=== PATIENT | male | born 1940 | race Caucasian/White ===

== ENCOUNTER → 2016-12-31 | Outpatient (CLI) | payer BC ==
[~2016-12-31] MED LIST: ACET-1311 PO; ACET500T57 PO; ASPI-461 PO; ASPI325T39 PO; ASPI81TA28 PO; CEPH500C2 PO; CRD200 PO; Captopril PO; GLCSR5 PO; ISOS30TA3 PO; LSX20 PO; MULTTAB58 PO; NTRGSL/4 SL; OXYC-57 PO; OXYC-643 PO; OXYC1TAB3 PO; PRVC/40 PO; RANO500T PO; RIVA1TAB4 PO; SILD50TA PO; TPRSR/25 PO; VGR25 PO
[2016-12-31 09:35] LABS: BASO % 0.6 %; BASO ABS # 0.03 K/uL (0-0.2); COMPLETE YES; HEMATOCRIT 45.3 % (42-52); IG% 0.6 %; LYMPH ABS # 1.03 K/uL (1.2-3.4); MEAN CELL VOLUME 98.1 fL (80-100); MEAN CORPUSCULAR HEMOGLOBIN 35.1 pg (25-34); MEAN CORPUSCULAR HGB CONC 35.8 g/dl (32-36); MEAN PLATELET VOLUME 12.1 fL (7.4-10.4); MONO % 12.4 %; NEUT % 64.4 %; PLATELET COUNT 146 K/uL (130-400); RED BLOOD COUNT 4.62 M/uL (4.7-6.1); WHITE BLOOD COUNT 5.42 K/uL (4.8-10.8)
[2016-12-31 10:02] LABS: ALT/SGPT 23 U/L (12-78); BLOOD UREA NITROGEN 25 mg/dl (7-18); BUN/CREATININE RATIO 25.8 (10-20); CALCIUM 8.9 mg/dl (8.5-10.1); CARBON DIOXIDE 30 mmol/L (21-32); CHLORIDE 104 mmol/L (98-107); CHOLESTEROL 102 mg/dl (0-200); CREATININE 0.95 mg/dl (0.60-1.40); GLUCOSE 109 mg/dl (70-99); POTASSIUM 4.2 mmol/L (3.5-5.1); SODIUM 140 mmol/L (136-145)
[2016-12-31 10:12] LABS: AST/SGOT 15 U/L (15-37); CHOLESTEROL/HDL RATIO 3.8; HDL CHOLESTEROL 27 mg/dl; LDL CHOLESTEROL CALCULATED 41 mg/dl; TRIGLYCERIDES 170 mg/dl (0-150); VERY LOW DENSITY LIPOPROT CALC 34 mg/dl
[2016-12-31 11:09] LABS: ESTIMATED AVERAGE GLUCOSE 117 mg/dl; HA1C FLAG Normal (Normal)
--- NOTE | 2017-01-05 13:56 | CODING QUERY MEDICAL NECESSITY ---
SUPPORTING DIAGNOSIS NEEDED A supporting diagnosis is required for the test/procedure performed on this patient in order for us to be reimbursed by the patient's insurance. Please provide a supporting diagnosis for the following test/procedure listed below next to the test name along with your signature. *If there is no additional diagnosis for this patient that would support the following test/procedure please document that below next to the test/procedure. Test(s)/Procedure(s) that require a supporting diagnosis: * GLYCATED HEMOGLOBIN DIAGNOSIS: * DOS: 12/31/16 Provider Signature: Date: Thank you Teresa García Health Information Management Once completed, please kindly fax back to [phone] For questions please call [phone]
== END | disposition home or self-care (01) ==
LOC: C.LAB1850 08:49
PROVIDERS: ATTEND Internal Medicine
DX: E78.00 Pure hypercholesterolemia, unspecified (principal); E11.9 Type 2 diabetes mellitus without complications

== ENCOUNTER → 2017-01-14 | Day surgery (SDC) | payer BC ==
[~2017-01-14] VITALS: Ht 175.3 cm; Wt 74.5 kg
[~2017-01-14] MED LIST changes: +ACETAMINOPHEN 325 MG TAB PO PRN; +FENTANYL CITRATE INJ 50 MCG/1 ML 2 ML VIAL ONE; +HEPARIN SOD (PORCINE) 1000 UNIT/ML 10 ML VIAL ONE; +MIDAZOLAM HCL 1 MG/ML 2ML VIAL ONE; +NITROGLYCERIN/D5W 100MCG/ML 20ML SYR ONE; +NiCARDipine HCL INJ 2.5 MG/ML 10 ML AMP ONE; +ONDANSETRON INJ 2 MG/ML 2 ML VIAL ONE; +SODIUM CHLORIDE 0.9% 1000ML 1,000 ML IV SCH
[2017-01-14 07:30] VITALS: Ht 175.3 cm; Wt 74.5 kg
[2017-01-14 07:31] VITALS: BP 173/79; PULSE 54; TEMP 36.4; O2SAT 98
--- NOTE | 2017-01-14 09:52 | History & Physical Bridge Note ---
H&P Re-Evaluation Bridge Note: I have examined the patient, reviewed the History & Physical and in the interval since the performance of the History & Physical I have noted the following changes of clinical significance: No changes noted
--- NOTE | 2017-01-14 09:53 | Procedure Note ---
Pre-Mod Sedation Assessment General Date of Moderate Sedation: Jan 14, 2017. Vital Signs: Vital Signs Past 12 Hours Date Time Temp Pulse Resp B/P Pulse Ox O2 Delivery O2 Flow Rate FiO2 01/14/17 09:13 54 20 149/75 100 Nasal Cannula 4 01/14/17 07:31 36.4 54 16 173/79 98 Room Air Review Cardiovascular: regular rate, rhythm, no edema Abdomen: normal bowel sounds, non tender Lungs: chest non-tender, lungs clear, normal breath sounds Pre-Sedation Airway Assessment Oral Cavity: Capped Teeth, Dental Abnormalities Able to Visualize Vocal Cords: Yes Short Thick Neck: No Hx of Sleep Apnea: Yes Smoking Status: Never Smoker Mallampati Classification: Class II ASA Classification: Class II Procedure Planning Contraindications-for Mod Sed: None Yes Notes The planned sedation has been discussed with the patient and consent obtained. I have identified the patient, determined the appropriateness of sedation and have assessed the patient immediately prior to the procedure. All medicine(s) and interventions are by my order.
--- NOTE | 2017-01-14 09:54 | Procedure Note ---
Post-Mod Sedation Assessment General Date of Moderate Sedation Jan 14, 2017. Vital Signs: Vital Signs Past 12 Hours Date Time Temp Pulse Resp B/P Pulse Ox O2 Delivery O2 Flow Rate FiO2 01/14/17 09:13 54 20 149/75 100 Nasal Cannula 4 01/14/17 07:31 36.4 54 16 173/79 98 Room Air Review - Discharge Criteria Vital Signs Stable: Yes Alert/Oriented/Conversant: Yes Returned to Baseline Mental St: Yes Nausea Absent/Minimal: Yes Pain/Discomfort/Absent/Minimal: Yes Normal/Baseline Respirations: Yes Active Bleeding?: No Pt Received D/C Instructions: Yes Prescriptions Given: Transmitted Specific Proced. D/C Criteria Distal Pulses Present (Cardiac: Yes Groin site assessed-Card Cath: N/A Voided Prior To Discharge: N/A Discharged Patients Adult Escort/Transportation: Yes
--- NOTE | 2017-01-14 10:17 | Cardiac Catheterization ---
Procedure Note Procedure Date Jan 14, 2017. Pre-Procedure Diagnosis Angina AUC Score 8 Post-Procedure Diagnosis Severe CAD Procedure(s) Performed Coronary Angiography, IVUS Skein Drier Dr. Westfall Corn Shredder(s) [place] Estimated Blood Loss 15 Medication(s) Fentanyl, Heparin, Nitroglycerin, Versed, Lidocaine 1% Summary of Findings Indication: Accelerating Angina despite maximal medical therapy Access: 6Fr Right Radial Artery Catheters: Norman, JL3.5, EBU 3.5 guide Findings: LM - Calcified, 40-50% mid segment stenosis LAD - Heavily calcified, 99% proximal stenosis at take-off of diffusely disease small 1st diagonal, moderate 40-50% diffuse disease in mid segment, 50% focal stenosis in mid segment after take-off of D2. Circumflex - Calcified, 60% ostial stenosis, 50% mid stenosis RCA - Dominant, mild proximal-mid disease, 40-50% distal RCA disease prior to take-off of PDA. R-PDA small caliber vessel with 99% ostial stenosis. Small PLB1 and PLB2 with severe diffuse disease. IVUS used to assess left main. BMW wire placed into circumflex. Mid circumflex heavily calcified with at least 50% stenosis (CSA 4.5 cm2), 60% ostial calcified stenosis. Mid left main ~50% stenosis, CSA 6.3 cm2. Arterial Closure: TR Band Summary: 1. Severe multivessel coronary artery disease -- Heavily calcified 99% proximal LAD disease -- 40-50% LM disease (CSA 6.3 cm2 by IVUS) -- 60% ostial circumflex -- Severe 99% ostial stenosis in small R-PDA Recommendations: Refer to [facility] Surgery at [facility] for bypass surgery Continue current cardiac regimen and antianginals. 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 ACC Data Cardiac Status Clinical evaluation leading to the procedure CAD Presntation: Stable angina Anginal Classification: CCS III Heart Failure: No, NYHA Class: CCS I Cardiogenic Shock w/in 24Hrs: No Cardiac Arrest w/in 24Hrs: No Imaging studies past 6 months: No Stress studies past 6 months: No Standard Exercise Stress Test: No Stress Echocardiogram: No Stress Testing w/SPECT MPI: No Cardiac CTA: No Coronary Anatomy Dominant: Right Left Main (% Stenosis): Mid (40-50) LAD (% Stenosis): Proximal (99) Circumflex (% Stenosis): Ostial (60), Mid (50) RCA (% Stenosis): Distal (40-50) R PDA (% Stenosis): Ostial (99) R PL1 (% Stenosis): Ostial (95), Proximal R PL2 (% Stenosis): Proximal (95) Diagnostic Physician's Name: Marco Westfall MD Closure Device Percutaneous Entry Location: Radial Closure Device: Radial Band Recommendations: CABG Intraprocedure Events Significant Dissection: No Perforation: No
--- NOTE | 2017-01-14 10:22 | Discharge Instructions ---
Discharge Instructions Procedure Procedure Date: Jan 14, 2017. Reason for Visit: Angina Pectoris. Discharge Discharge Date: Jan 14, 2017. Last Recorded Wt (Kilograms): 74.5 Anesthesia Post Anesthesia Instructions: If you have had IV Sedation: * Do not drive today. * Resume driving when surgeon permits. * Do not make important decisions or sign legal documents today. * Call surgeon for: 1. Temperature elevations greater than 101 degrees F. 2. Uncontrollable pain. 3. Excessive bleeding. 4. Persistent nausea and vomiting. 5. Medication intolerance (nausea, vomiting or rash). * For nausea and vomiting use only clear liquids such as: tea, soda, bouillon until nausea subsides, then gradually increase diet as tolerated. * If you have any concerns or questions, call your surgeon's office. If physician is unavailable and it is an emergency, call 911 or go to the nearest emergency room. Instructions Activity Recommendations: limitations as noted below Allergies: Coded Allergies: Penicillins (Unverified Allergy, Mild, rash, 02/18/15) Provider Instructions ACTIVITY RECOMMENDATIONS: It is common to feel weak and fatigue for a few days. * Do not drive or operate any motorized equipment for the next three days. * Limit stair usage (2 or 3 trips a day only) for the next three days. * Do not lift anything heavier than 10 pounds for the next three days. * Do not engage in vigorous exercise or any sports for the next five days. * You may shower the day after your procedure, but do not immerse the area for three days. Cleanse the site gently with soap and water. SPECIAL CARE INSTRUCTIONS: * You may replace the pressure dressing or band-aid the morning after the procedure. * After your procedure, it is normal to have a small bruise or small lump at the site. Examine your site daily for any change in the bruise or lump, redness, swelling, drainage or numbness. Notify your doctor if any change. BLEEDING: * If there is a small amount of bleeding at the site, lie down and apply firm pressure with a clean cloth for ten minutes. When the bleeding stops, lie quietly keeping the procedure limb straight for six hours. Notify your doctor as soon as possible. * If the bleeding does not stop after ten minutes or if there is a large amount of bleeding or spurting, call 911 immediately. Continue to lie down and hold firm pressure until help arrives. SKIN IRRITATION: * You may experience some redness and/or swelling in the area where radiation was administered. If any skin irritation occurs, please contact your family physician. FOLLOW UP VISIT: Keep any scheduled doctor appointments. Follow Up Follow-up with: Cardiac surgery at [facility] Recommendations: Call your doctor if: * Temperature above 101 degrees * Pain not relieved by pain medicine ordered * There is increased drainage or redness from any incision * You have any unanswered questions or concerns. Your Doctors Instructions noted above were prepared by provider Alvaro Westfall. Patient Signature Section: Patient Instructions Signature Page Kye Rivera Patient (or Guardian) Signature/Date: I have read and understand the instructions given to me by my caregivers. Caregiver/RN/Doctor Signature/Date: The above-named patient and/or guardian has received patient instructions on this date. + Original Patient Signature Page (only) stays with chart. Please make copy for patient.
[2017-01-14 15:00] VITALS: BP 160/68; PULSE 62; O2SAT 96
--- NOTE | 2017-01-14 17:00 | ECHOCARDIOGRAM REPORT ---
*NOTICE TO RECEIVING CONSTITUTION PARTY AGENCY This information is strictly Confidential and protected under [place] law. [place] law prohibits you from making any further disclosure of this information unless further disclosure is expressly permitted by the written consent of the person to whom it pertains or is authorized by law. A general authorization for the release of medical or other information is not sufficient for this purpose. Hospital accepts no responsibility if the information is made available to any other person, INCLUDING THE PATIENT. Interpretation Summary * Name: SUNNY SARMIENTO Study Date: 01/14/2017 12:00 PM BP: 158/70 mmHg * Patient Location: C.CATH HR: 55 * : 1940 (M/d/yyyy) Gender: Male Height: 69 in * Age: 76 yrs Ethnicity: CA Weight: 164 lb * Ordering Physician: Marco Westfall * Referring Physician: Marco Westfall * Performed By: Elise Whittaker RDCS * * Reason For Study: Ischemic cardiomyopathy * BSA: 1.9 m2 * -- Conclusions -- * 1. Normal LV size and wall thickness. * 2. Normal LV systolic function. LVEF 60-65%. No regional wall motion abnormalities. * 3. Grade I diastolic dysfunction. * 4. Normal RV size and function. * 5. Mild mitral regurgitation. * 6. Trace aortic regurgitation. * 7. Normal estimated PA and RA pressures. * 8. No prior studies for comparison. Procedure Details * A complete two-dimensional transthoracic echocardiogram was performed (2D, M-mode, Doppler and color flow Doppler). Left Ventricle * The left ventricle is grossly normal size. * There is normal left ventricular wall thickness. * Ejection Fraction = 60-65%. * No regional wall motion abnormalities noted. Right Ventricle * The right ventricle is grossly normal size. * The right ventricular systolic function is normal as assessed by tricuspid annular plane systolic excursion (TAPSE) (normal >1.5 cm). Atria * Borderline left atrial enlargement. * Right atrial size is normal. * No ASD detected; PFO is not assessed. Mitral Valve * The mitral valve is grossly normal. * There is no mitral valve stenosis. * There is mild mitral regurgitation. Tricuspid Valve * The tricuspid valve anatomy is normal. * There is no tricuspid stenosis. * There is mild tricuspid regurgitation. Aortic Valve * The aortic valve is normal in structure and function. * The aortic valve is trileaflet. * No hemodynamically significant valvular aortic stenosis. * Trace aortic regurgitation. Pulmonic Valve * The pulmonary valve is inadequately visualized, but the Doppler data is adequate for interpretation. * There is no pulmonic valvular stenosis. * Trace pulmonic valvular regurgitation. Great Vessels * The aortic root and proximal ascending aorta are normal sized. * No Doppler or imaging evidence of an aortic coarctation. * There is no evidence of pulmonary hypertension. The PA systolic pressure is less than 36 mmHg. * Normal inferior vena cava size and collapsability with sniff indicates a normal right atrial pressure of 3 mmHg Left Ventricular Diastolic Function * Grade I diastolic dysfunction, (abnormal relaxation pattern). MMode 2D Measurements and Calculations IVSd 0.88 cm LVIDd 4.0 cm LVIDs 2.7 cm LVPWd 0.92 cm IVS/LVPW 0.95 FS 33.6 % EDV(Teich) 70.6 ml ESV(Teich) 26.2 ml EF(Teich) 62.9 % EDV(cubed) 64.7 ml ESV(cubed) 19.0 ml EF(cubed) 70.7 % LV mass(C)d 110.2 grams LV mass(C)dI 58.0 grams/m\S\2 CO(Teich) 2.3 l/min CI(Teich) 1.2 l/min/m\S\2 SV(Teich) 44.4 ml SI(Teich) 23.4 ml/m\S\2 CO(cubed) 2.4 l/min CI(cubed) 1.3 l/min/m\S\2 SV(cubed) 45.7 ml SI(cubed) 24.1 ml/m\S\2 Ao root diam 2.6 cm Ao root area 5.4 cm\S\2 ACS 1.9 cm LA dimension 3.1 cm asc Aorta Diam 3.2 cm LA/Ao 1.2 LVOT diam 2.0 cm LVOT area 3.1 cm\S\2 LVAd ap4 26.1 cm\S\2 LVLd ap4 8.3 cm EDV(MOD-sp4) 67.0 ml LVAs ap4 13.4 cm\S\2 LVLs ap4 6.2 cm ESV(MOD-sp4) 24.0 ml EF(MOD-sp4) 64.2 % LVAd ap2 23.2 cm\S\2 LVLd ap2 8.0 cm EDV(MOD-sp2) 55.0 ml LVAs ap2 11.7 cm\S\2 LVLs ap2 6.5 cm ESV(MOD-sp2) 19.0 ml EF(MOD-sp2) 65.5 % CO(MOD-sp4) 2.2 l/min CI(MOD-sp4) 1.2 l/min/m\S\2 SV(MOD-sp4) 43.0 ml SI(MOD-sp4) 22.6 ml/m\S\2 CO(MOD-sp2) 1.9 l/min CI(MOD-sp2) 0.99 l/min/m\S\2 SV(MOD-sp2) 36.0 ml SI(MOD-sp2) 19.0 ml/m\S\2 Doppler Measurements and Calculations MV E max tommy 75.5 cm/sec MV A max tommy 84.4 cm/sec MV E/A 0.89 MV dec time 0.20 sec Ao V2 max 90.9 cm/sec Ao max PG 3.3 mmHg Ao max PG (full) 0.69 mmHg SETH(V,A) 2.7 cm\S\2 SETH(V,D) 2.7 cm\S\2 AI max tommy 177.1 cm/sec AI max PG 12.6 mmHg AI dec slope 124.8 cm/sec\S\2 AI P1/2t 415.9 msec LV V1 max PG 2.6 mmHg LV V1 max 80.9 cm/sec MR max tommy 581.1 cm/sec MR max PG 135.1 mmHg MR mean tommy 459.6 cm/sec MR mean PG 93.5 mmHg MR VTI 229.8 cm PA V2 max 79.1 cm/sec PA max PG 2.5 mmHg PA acc slope 252.3 cm/sec\S\2 PA acc time 0.16 sec TR max tommy 241.8 cm/sec PA pr(Accel) 7.7 mmHg
== END | disposition home or self-care (01) ==
LOC: C.CATH 06:54
PROVIDERS: ATTEND Internal Medicine Interventional Cardiology
DX: I25.119 Atherosclerotic heart disease of native coronary artery with unspecified angina pectoris (principal); I25.84 Coronary atherosclerosis due to calcified coronary lesion; I47.1 Supraventricular tachycardia; I44.2 Atrioventricular block, complete; I10 Essential (primary) hypertension; E78.00 Pure hypercholesterolemia, unspecified; E11.9 Type 2 diabetes mellitus without complications

== ENCOUNTER 2017-02-20 11:12 | Emergency (ER) | payer BC ==
[~2017-02-20 11:12] MED LIST changes: -ACET-1311 PO; -ACET500T57 PO; -ACETAMINOPHEN 325 MG TAB PO PRN; -ASPI-461 PO; -ASPI81TA28 PO; -CEPH500C2 PO; -FENTANYL CITRATE INJ 50 MCG/1 ML 2 ML VIAL ONE; -HEPARIN SOD (PORCINE) 1000 UNIT/ML 10 ML VIAL ONE; -MIDAZOLAM HCL 1 MG/ML 2ML VIAL ONE; -NITROGLYCERIN/D5W 100MCG/ML 20ML SYR ONE; -NTRGSL/4 SL; -NiCARDipine HCL INJ 2.5 MG/ML 10 ML AMP ONE; -ONDANSETRON INJ 2 MG/ML 2 ML VIAL ONE; -OXYC-57 PO; -OXYC-643 PO; -OXYC1TAB3 PO; -RIVA1TAB4 PO; -SILD50TA PO; -SODIUM CHLORIDE 0.9% 1000ML 1,000 ML IV SCH
[2017-02-20 11:14] VITALS: TEMP 36.8; Ht 176.5 cm
--- NOTE | 2017-02-20 11:48 | EMERGENCY ROOM VISIT NOTE ---
History Report prepared by Gen: Bobby Majano Under the Supervision of: Dr. Tone Carney D.O. First contact with patient: 11:26 Chief Complaint: LEG PAIN,LEG INJURY Stated Complaint: LEG PAIN/REFERRED BY TIMOTHY OLIVO) History of Present Illness The patient is a 76 year old male who presents to the Emergency Room with complaints of worsening left leg pain beginning two days prior to arrival. He currently rates his discomfort as a 10/10 in severity. The patient states his pain worsens with walking and standing. He notes he had cardiac bypass surgery performed eight days ago at [facility]. The patient states he had two grafts harvested from his left leg. He notes he is current on Xarelto 20 mg daily for DVT prophylaxis. The patient states he has a pacemaker that was placed years ago. He denies a fever. Source of History: patient Onset: two days [employer] Position: leg (left) Symptom Intensity: 10/10 Timing: worsening Modifying Factors (Worsening): other (Walking. Standing.) Associated Symptoms: No fevers Review of Systems See above for pertinent positives & negatives. A total of 10 systems reviewed and were otherwise negative. Past Medical & Surgical Medical Problems: (1) Hypercholesterolemia (2) Hypertension (3) Type 2 diabetes mellitus Surgical Problems: (1) Hx of heart bypass surgery Family History Diabetes mellitus Heart disease Social History Smoking Status: Never Smoker Marital Status: Housing Status: lives with significant other Occupation Status: retired Current/Historical Medications Scheduled Amiodarone HCl (Amiodarone HCl), 200 MG PO UD Aspirin (Aspirin), 81 MG PO BID Cephalexin Monohydrate (Keflex), 500 MG PO QID Furosemide (Furosemide), 20 MG PO QAM Glipizide (Glipizide Xl), 5 MG PO BID Metoprolol Succinate (Metoprolol Succinate ER), 12.5 MG PO BID Pravastatin Sod (Pravastatin Sodium), 40 MG PO HS Rivaroxaban (Xarelto), 20 MG PO QAM Scheduled PRN Acetaminophen (Tylenol), 650 MG PO Q6 PRN for Pain Acetaminophen (Acetaminophen), 2 TAB PO Q8H PRN for Pain Oxycodone Immediate Rel Tab (Roxicodone Ir), 1-2 TAB PO Q4H PRN for Severe Pain Oxycodone/Acetaminophen 5MG/325MG (Oxycodone/Acetaminophen 5MG/325MG), 1 TABLET PO Q4H PRN for Pain Allergies Coded Allergies: Penicillins (Unverified Allergy, Mild, rash, 02/20/17) Physical Exam Vital Signs Date Time Temp Pulse Resp B/P Pulse Ox O2 Delivery O2 Flow Rate FiO2 02/20/17 13:19 83 02/20/17 13:13 82 16 142/75 97 02/20/17 13:12 97 Room Air 02/20/17 11:14 36.8 84 17 137/66 98 Room Air Physical Exam GENERAL: Patient is well appearing and in no acute distress. HEENT: No acute trauma, normocephalic atraumatic, mucous membranes moist, no nasal congestion, no scleral icterus. NECK: No stridor, no adenopathy, no meningismus, trachea is midline. LUNGS: No dyspnea. Clear to auscultation and equal bilaterally. No wheeze, no rhonchi. HEART: Regular rate and rhythm. No murmurs, rubs, gallops appreciated. ABDOMEN: Soft, nontender, bowel sounds positive, no masses appreciated, no peritonitis. BACK: No midline tenderness, no CVA tenderness EXTREMITIES: 3+ pitting edema. Cellulitis changes over the medial aspect of the left ankle. Two harvest site surgical wounds that are clean, dry, and intact. Extensive ecchymosis of the medical thigh. Normal motion all extremities. NEUROLOGIC: Alert and oriented, no acute motor or sensory deficits, no focal weakness, cranial nerves grossly intact. SKIN: No rash, no jaundice, no diaphoresis. Medical Decision & Procedures ER Provider Diagnostic Interpretation: Radiology results as stated below per my review and radiologist interpretation: ULTRASOUND LEFT VENOUS DOPP LOWER EXT UNILAT CLINICAL HISTORY: Left leg swelling COMPARISON STUDY: No previous studies for comparison. FINDINGS: Real-time and color flow Doppler imaging were performed. Flow was seen within the femoral, popliteal and calf veins with no intraluminal thrombus demonstrated. There is a left greater saphenous vein thrombus. This extends from the proximal to distal thigh. The thrombus extends proximally to within 12 mm of the common femoral vein confluence. IMPRESSION: 1. Left greater saphenous vein thrombus. 2. No evidence of thrombus within the deep system proper Electronically signed by: Froilan Rubin M.D. 02/20/2017 1:12 PM LEFT TIBIA/FIBULA 2 VIEWS ROUTINE CLINICAL HISTORY: Left leg swelling and redness. COMPARISON: None. DISCUSSION: No fractures are visualized. Vascular clips are visualized within the medial soft tissues proximally. At the knee, there is chondrocalcinosis. No destructive lesions are evident. There are vascular calcifications present. No destructive lesions are visualized. IMPRESSION: 1. Chondrocalcinosis 2. Vascular calcifications 3. No evidence of fracture Electronically signed by: Froilan Rubin M.D. 02/20/2017 2:37 PM Laboratory Results 02/20/17 11:46 Red Blood Count 3.19, Mean Corpuscular Volume 98.4, Mean Corpuscular Hemoglobin 32.6, Mean Corpuscular Hemoglobin Concent 33.1, Mean Platelet Volume 10.4, Neutrophils (%) (Auto) 75.8, Lymphocytes (%) (Auto) 13.8, Monocytes (%) (Auto) 6.2, Eosinophils (%) (Auto) 2.6, Basophils (%) (Auto) 0.3, Neutrophils # (Auto) 5.90, Lymphocytes # (Auto) 1.07, Monocytes # (Auto) 0.48, Eosinophils # (Auto) 0.20, Basophils # (Auto) 0.02 02/20/17 11:46 Test 02/20/17 11:46 White Blood Count 7.77 K/uL (4.8-10.8) Red Blood Count 3.19 M/uL (4.7-6.1) Hemoglobin 10.4 g/dL (14.0-18.0) Hematocrit 31.4 % (42-52) Mean Corpuscular Volume 98.4 fL (80-100) Mean Corpuscular Hemoglobin 32.6 pg (25-34) Mean Corpuscular Hemoglobin Concent 33.1 g/dl (32-36) Platelet Count 261 K/uL (130-400) Mean Platelet Volume 10.4 fL (7.4-10.4) Neutrophils (%) (Auto) 75.8 % Lymphocytes (%) (Auto) 13.8 % Monocytes (%) (Auto) 6.2 % Eosinophils (%) (Auto) 2.6 % Basophils (%) (Auto) 0.3 % Neutrophils # (Auto) 5.90 K/uL (1.4-6.5) Lymphocytes # (Auto) 1.07 K/uL (1.2-3.4) Monocytes # (Auto) 0.48 K/uL (0.11-0.59) Eosinophils # (Auto) 0.20 K/uL (0-0.5) Basophils # (Auto) 0.02 K/uL (0-0.2) RDW Standard Deviation 55.5 fL (36.4-46.3) RDW Coefficient of Variation 16.1 % (11.5-14.5) Immature Granulocyte % (Auto) 1.3 % Immature Granulocyte # (Auto) 0.10 K/uL (0.00-0.02) Prothrombin Time 16.7 SECONDS (9.0-12.0) Prothromb Time International Ratio 1.5 (0.9-1.1) Activated Partial Thromboplast Time 37.4 SECONDS (21.0-31.0) Partial Thromboplastin Ratio 1.4 Anion Gap 8.0 mmol/L (3-11) Estimated GFR () 98.8 Estimated GFR (Non- 85.2 BUN/Creatinine Ratio 21.8 (10-20) Calcium Level 8.7 mg/dl (8.5-10.1) Total Bilirubin 0.9 mg/dl (0.2-1) Aspartate Amino Transf (AST/SGOT) 16 U/L (15-37) Alanine Aminotransferase (ALT/SGPT) 49 U/L (12-78) Alkaline Phosphatase 73 U/L (45-117) Total Protein 6.1 gm/dl (6.4-8.2) Albumin 3.0 gm/dl (3.4-5.0) Globulin 3.1 gm/dl (2.5-4.0) Albumin/Globulin Ratio 1.0 (0.9-2) Laboratory results as reviewed by me. Medications Administered Medications (Trade) Dose Ordered Sig/Gwyn Route Start Time Stop Time Status Last Admin Dose Admin Acetaminophen (Tylenol Tab) 1,000 mg NOW STAT PO 02/20/17 14:12 02/20/17 14:14 DC 02/20/17 14:22 1,000 MG Hydromorphone HCl (Dilaudid Inj) 1 mg NOW STAT IV 02/20/17 14:12 02/20/17 14:14 DC 02/20/17 14:19 1 MG ED Course 1134: The patient was evaluated in room C10. A complete history and physical exam was performed. 1330: I spoke to TERRY Kohli (Cardiothoracic Surgery) about the patient's case, and asked if the patient needed to be changed to treatment dose Xarelto. She does not want to keep the patient on 20 mg per day. She would like to keep the patient on Keflex and to follow up this week with his surgeon. 1410: Reevaluated and updated the patient at this time. 1412: Ordered Dilaudid Inj 1 mg IV, Tylenol Tab 1,000 mg PO. 1456: Reevaluated the patient. Discussed results and discharge instructions: He verbalized understanding and agreement. The patient is ready for discharge. Medical Decision The differential diagnoses include but are not limited to: Etiologies such as DVT, musculoskeletal, infection, joint effusion, trauma, lymphedema, idiopathic, CHF, as well as others were entertained.. I discussed the case with cardiothoracic PA they had contacted today. I advised them of the thrombus in the left greater saphenous vein, she reported that was to be expected for the surgery. With regards to the development of possible cellulitis we will place the patient on Keflex, and advised him to follow-up with the cardiothoracic surgery clinic on Wednesday, he has a follow-up appointment for . I sat at the bedside and extensively answered questions with the patient, patient's , and patient's daughter. Their main concern is the amount of pain the patient is experiencing. He had been previously alternating 650 mg of Tylenol and 6 hours later taking one Percocet, which is significantly underdosing the allowable amount of Tylenol and oxycodone. Accordingly I have advised him to stop his prior dosing regimen and continue with the following regimen: He is to take acetaminophen 975-1000 mg by mouth every 8 hours [id number] He can then take oxycodone IR 5 mg 1-2 tablets every 4 hours as needed for severe pain He is also to keep his leg elevated, it is noted that he reports the pain was worse after attempting get out of bed and letting his leg hanging over the side of the bed while waiting for the pain to ease. Consults Time Called: 1328 Consulting Physician: TERRY Kohli (Cardiothoracic Surgery) Returned Call: 1330 I spoke to TERRY Kohli (Cardiothoracic Surgery) about the patient 's case, and asked if the patient needed to be changed to treatment dose Xarelto. She does not want to keep the patient on 20 mg per day. She would like to keep the patient on Keflex and to follow up this week with his surgeon. Impression Primary Impression: Cellulitis of leg Additional Impressions: Greater saphenous vein embolism Post-operative state CAD (coronary artery disease) Scribe Attestation The scribe's documentation has been prepared under my direction and personally reviewed by me in its entirety. I confirm that the note above accurately reflects all work, treatment, procedures, and medical decision making performed by me. Departure Information Dispostion Home / Self-Care Prescriptions Acetaminophen (ACETAMINOPHEN) 500 Mg Tab 2 TAB PO Q8H Y for Pain, #90 TAB Prov: Tone Carney D.O. 02/20/17 Oxycodone Immediate Rel Tab (ROXICODONE IR) 5 Mg Tab 1-2 TAB PO Q4H Y for Severe Pain, #30 TAB Prov: Tone Carney D.O. 02/20/17 Cephalexin Monohydrate (KEFLEX) 500 Mg Cap 500 MG PO QID for 10 Days, #40 CAP Prov: Tone Carney D.O. 02/20/17 Referrals Pavel Haro M.D. (PCP) Forms HOME CARE DOCUMENTATION FORM, IMPORTANT VISIT INFORMATION Patient Instructions Cellulitis Dc, My [facility] Additional Instructions He had a small clot in the remaining vein that had been harvested. Call 911 immediately for trouble breathing, severe chest pain, or passing out, or worsening redness and streaking up the legs Sharmaine STEWART Cardiothoracic Surgery does not want you to change your blood thinner dose. Start the antibiotics and finish all the doses. Follow-up with [facility] cardioth[facility] surgery this week for repeat evaluation, this is very important. Call their office tomorrow to advise them if you're doing better, worse, and if he should be seen sooner than Keep the leg elevated when not walking. Stop the Percocet and the prior dosing regiment. Continue with the following pain medications: Take 975-1000 mg of acetaminophen (Tylenol) by mouth every 8 hours continuous. For severe pain you can take 1-2 tablets of oxycodone IR 5 mg by mouth up to every 4 hours as needed for severe pain. Problem Qualifiers Primary Impression: Cellulitis of leg Laterality: left Qualified Codes: L03.116 - Cellulitis of left lower limb Additional Impressions: Greater saphenous vein embolism Laterality: left Qualified Codes: I82.812 - Embolism and thrombosis of superficial veins of left lower extremities CAD (coronary artery disease) Coronary Disease-Associated Artery/Lesion type: [place] artery [place] vs. transplanted heart: [place] heart Associated angina: without angina Qualified Codes: I25.10 - Atherosclerotic heart disease of [place] coronary artery without angina pectoris
[2017-02-20 12:10] LABS: BASO % 0.3 %; BASO ABS # 0.02 K/uL (0-0.2); COMPLETE YES; EOS % 2.6 %; HEMATOCRIT 31.4 % (42-52); IG% 1.3 %; LYMPH % 13.8 %; LYMPH ABS # 1.07 K/uL (1.2-3.4); MEAN CELL VOLUME 98.4 fL (80-100); MEAN CORPUSCULAR HEMOGLOBIN 32.6 pg (25-34); MEAN CORPUSCULAR HGB CONC 33.1 g/dl (32-36); MEAN PLATELET VOLUME 10.4 fL (7.4-10.4); MONO % 6.2 %; NEUT % 75.8 %; PLATELET COUNT 261 K/uL (130-400); RED BLOOD COUNT 3.19 M/uL (4.7-6.1); WHITE BLOOD COUNT 7.77 K/uL (4.8-10.8)
[2017-02-20] MEDS ORDERED: ACET-1311 PO (12:11)
[2017-02-20] MEDS ORDERED: ASPI-461 PO (12:11)
[2017-02-20] MEDS ORDERED: RIVA1TAB4 PO (12:11)
[2017-02-20] MEDS ORDERED: OXYC-643 PO (12:12)
[2017-02-20 12:21] LABS: INR 1.5 (0.9-1.1); PARTIAL THROMBOPLASTIN RATIO 1.4; PROTHROMBIN TIME (PATIENT) 16.7 SECONDS (9.0-12.0)
[2017-02-20 12:27] LABS: ALT/SGPT 49 U/L (12-78); AST/SGOT 16 U/L (15-37); BLOOD UREA NITROGEN 19 mg/dl (7-18); BUN/CREATININE RATIO 21.8 (10-20); CALCIUM 8.7 mg/dl (8.5-10.1); CARBON DIOXIDE 28 mmol/L (21-32); CHLORIDE 105 mmol/L (98-107); CREATININE 0.85 mg/dl (0.60-1.40); GLUCOSE 96 mg/dl (70-99); POTASSIUM 4.4 mmol/L (3.5-5.1); SODIUM 141 mmol/L (136-145)
[2017-02-20 12:30] LABS: ALKALINE PHOSPHATASE 73 U/L (45-117)
[2017-02-20 13:12] VITALS: O2SAT 97
--- NOTE | 2017-02-20 13:15 | DIAGNOSTIC IMAGING REPORT ---
ULTRASOUND LEFT VENOUS DOPP LOWER EXT UNILAT CLINICAL HISTORY: Left leg swelling COMPARISON STUDY: No previous studies for comparison. FINDINGS: Real-time and color flow Doppler imaging were performed. Flow was seen within the femoral, popliteal and calf veins with no intraluminal thrombus demonstrated. There is a left greater saphenous vein thrombus. This extends from the proximal to distal thigh. The thrombus extends proximally to within 12 mm of the common femoral vein confluence. IMPRESSION: 1. Left greater saphenous vein thrombus. 2. No evidence of thrombus within the deep system proper Electronically signed by: Froilan Rubin M.D. 02/20/2017 1:12 PM Dictated Date/Time: 02/20/2017 1:11 PM
[2017-02-20] MEDS ORDERED: CEPH500C2 PO (13:39)
[2017-02-20] MEDS ORDERED: ACETAMINOPHEN 500 MG TAB PO STA (14:12)
[2017-02-20] MEDS ORDERED: HYDROmorphone INJ 1 MG/ML SYR IV STA (14:12)
[2017-02-20] MEDS ORDERED: ACET500T57 PO (14:22)
[2017-02-20] MEDS ORDERED: OXYC1TAB3 PO (14:22)
--- NOTE | 2017-02-20 14:39 | DIAGNOSTIC IMAGING REPORT ---
LEFT TIBIA/FIBULA 2 VIEWS ROUTINE CLINICAL HISTORY: Left leg swelling and redness. COMPARISON: None. DISCUSSION: No fractures are visualized. Vascular clips are visualized within the medial soft tissues proximally. At the knee, there is chondrocalcinosis. No destructive lesions are evident. There are vascular calcifications present. No destructive lesions are visualized. IMPRESSION: 1. Chondrocalcinosis 2. Vascular calcifications 3. No evidence of fracture Electronically signed by: Froilan Rubin M.D. 02/20/2017 2:37 PM Dictated Date/Time: 02/20/2017 2:36 PM
[2017-02-20 15:12] VITALS: BP 136/70; PULSE 70; O2SAT 97
[2017-02-27] MEDS ORDERED: CRD200 PO (15:00)
[2017-04-12] MEDS ORDERED: NTRGSL/4 SL (14:42)
[2017-04-12] MEDS ORDERED: ASPI81TA28 PO (14:42)
== END 2017-02-20 15:13 | disposition home or self-care (01) ==
LOC: C.EDB 11:15 → C.EDC 15:13
DX: L03.116 Cellulitis of left lower limb (principal); I82.812 Embolism and thrombosis of superficial veins of left lower extremity; Z98.890 Other specified postprocedural states; I25.10 Atherosclerotic heart disease of native coronary artery without angina pectoris; Z86.718 Personal history of other venous thrombosis and embolism; I10 Essential (primary) hypertension; E11.9 Type 2 diabetes mellitus without complications; E78.00 Pure hypercholesterolemia, unspecified; Z95.1 Presence of aortocoronary bypass graft; Z79.82 Long term (current) use of aspirin; Z79.899 Other long term (current) drug therapy; Z88.0 Allergy status to penicillin; Z83.3 Family history of diabetes mellitus; Z82.49 Family history of ischemic heart disease and other diseases of the circulatory system

== ENCOUNTER → 2017-04-05 | Outpatient (CLI) | payer BC ==
[~2017-04-05] MED LIST changes: +ACET-1311 PO; +ACET500T57 PO; +ASPI-461 PO; -ASPI325T39 PO; +ASPI81TA28 PO; -Captopril PO; -ISOS30TA3 PO; -MULTTAB58 PO; +NTRGSL/4 SL; +OXYC-643 PO; +OXYC1TAB3 PO; -RANO500T PO; +RIVA1TAB4 PO; -VGR25 PO
[2017-04-05 10:06] LABS: ESTIMATED AVERAGE GLUCOSE 108 mg/dl; HA1C FLAG Normal (Normal)
--- NOTE | 2017-04-09 11:28 | CODING QUERY MEDICAL NECESSITY ---
SUPPORTING DIAGNOSIS NEEDED Dr. Haro, A supporting diagnosis is required for the test/procedure performed on this patient in order for us to be reimbursed by the patient's insurance. Please provide a supporting diagnosis for the following test/procedure listed below next to the test name along with your signature. *If there is no additional diagnosis for this patient that would support the following test/procedure please document that below next to the test/procedure. Test(s)/Procedure(s) that require a supporting diagnosis: * 81275 GLYCATED HEMOGLOBIN DIAGNOSIS: DATE OF SERVICE: 04/05/17 Provider Signature: Date: Thank you [place] [facility] Information Management Once completed, please kindly fax back to [phone] For questions please call [phone]
== END | disposition home or self-care (01) ==
LOC: C.LAB1850 07:49
PROVIDERS: ATTEND Internal Medicine
DX: E78.00 Pure hypercholesterolemia, unspecified (principal); E11.9 Type 2 diabetes mellitus without complications

== ENCOUNTER → 2017-11-05 | Outpatient (CLI) | payer BC ==
[~2017-11-05] MED LIST changes: -ACET-1311 PO; -ACET500T57 PO; -ASPI-461 PO; -CRD200 PO; -LSX20 PO; -OXYC-643 PO; -OXYC1TAB3 PO; -RIVA1TAB4 PO; -TPRSR/25 PO
[2017-11-05 12:55] LABS: HEMOGLOBIN A1C 6.2 % (4.5-5.6)
== END | disposition home or self-care (01) ==
LOC: C.LAB1850 10:02
PROVIDERS: ATTEND Internal Medicine
DX: E78.00 Pure hypercholesterolemia, unspecified (principal)

== ENCOUNTER → 2017-11-09 | Outpatient (CLI) | payer BC ==
--- NOTE | 2017-11-09 14:14 | DIAGNOSTIC IMAGING REPORT ---
CHEST 2 VIEWS ROUTINE CLINICAL HISTORY: R05 [id number] dyspnea COMPARISON STUDY: 02/27/2017 FINDINGS: Slight blunting left lateral calcific angle. Minimal atelectatic change left base. The effusion/consolidation left base of the prior study have resolved. Lungs currently are clear. Prior median sternotomy. Permanent bipolar cardiac pacemaker. IMPRESSION: Minimal chronic scarring left lung base and left lateral costophrenic angle. Otherwise negative chest. The above report was generated using voice recognition software. It may contain grammatical, syntax or spelling errors. Electronically signed by: José Miguel Sanders M.D. 11/09/2017 2:12 PM Dictated Date/Time: 11/09/2017 2:12 PM
[2017-11-09 15:00] LABS: INFLUENZA B ANTIGEN Neg for Influ B (NEG)
== END | disposition home or self-care (01) ==
LOC: C.RAD1850 13:36
PROVIDERS: ATTEND Internal Medicine
DX: R05 Cough (principal)

== ENCOUNTER → 2018-02-09 | Outpatient (CLI) | payer BC ==
[2018-02-09 09:34] LABS: BASO % 0.4 %; BASO ABS # 0.02 K/uL (0-0.2); EOS % 3.5 %; EOS ABS # 0.17 K/uL (0-0.5); HEMATOCRIT 42.9 % (42-52); HEMOGLOBIN 14.8 g/dL (14.0-18.0); IG# 0.01 K/uL (0.00-0.02); LYMPH ABS # 0.87 K/uL (1.2-3.4); MEAN CELL VOLUME 93.7 fL (80-100); MEAN CORPUSCULAR HEMOGLOBIN 32.3 pg (25-34); MEAN CORPUSCULAR HGB CONC 34.5 g/dl (32-36); MEAN PLATELET VOLUME 11.6 fL (7.4-10.4); MONO % 13.5 %; MONO ABS # 0.65 K/uL (0.11-0.59); NEUT % 64.4 %; PLATELET COUNT 149 K/uL (130-400); RED CELL DISTRIBUTION WIDTH CV 13.2 % (11.5-14.5); RED CELL DISTRIBUTION WIDTH SD 45.2 fL (36.4-46.3); WHITE BLOOD COUNT 4.82 K/uL (4.8-10.8)
[2018-02-09 10:01] LABS: ALT/SGPT 24 U/L (12-78); AST/SGOT 15 U/L (15-37); BLOOD UREA NITROGEN 22 mg/dl (7-18); CALCIUM 8.9 mg/dl (8.5-10.1); CARBON DIOXIDE 28 mmol/L (21-32); CHOLESTEROL 109 mg/dl (0-200); CREATININE 0.87 mg/dl (0.60-1.40); GLUCOSE 119 mg/dl (70-99); POTASSIUM 4.1 mmol/L (3.5-5.1); SODIUM 138 mmol/L (136-145)
[2018-02-09 10:04] LABS: LDL CHOLESTEROL CALCULATED 58 mg/dl
== END | disposition home or self-care (01) ==
LOC: C.LAB1850 08:33
PROVIDERS: ATTEND Internal Medicine
DX: E78.00 Pure hypercholesterolemia, unspecified (principal); R05 Cough

== ENCOUNTER → 2018-05-25 | Outpatient (CLI) | payer BC | END | disposition home or self-care (01) | LOC: C.LAB1850 08:57 | PROVIDERS: ATTEND Internal Medicine | DX: E78.00 Pure hypercholesterolemia, unspecified (principal) ==